=== PATIENT | male | born 2000 | race African-American/Black ===

== ENCOUNTER 2019-10-30 18:27 | Emergency (ER) | payer OTHER ==
--- NOTE | 2019-10-30 18:49 | ER Document Report ---
HPI - HPI Context: CHIEF COMPLAINT: "I think I have strep throat". HPI: 18-year-old male presenting to the emergency department complaining of sore throat for the last 3 to 4 days no definitive fever. Patient states it feels similar to prior episodes of strep throat ROS: See HPI - all other systems were reviewed and are otherwise negative Constitutional: no fever Eyes: no drainage, no blurred vision ENT: no runny nose, + sore throat Cardiovascular: no chest pain Resp: no SOB, no cough GI: no vomiting, no diarrhea, no abdominal pain : no dysuria Integumentary: no rash Allergy: no hives Musculoskeletal: no extremity pain or swelling Neurological: no numbness/tingling, no weakness MEDICATIONS: I agree with the patient medications as charted by the RN. ALLERGIES: I agree with the allergies as charted by the RN. PAST MEDICAL HISTORY/PAST SURGICAL HISTORY: Reviewed and agree as charted by RN. SOCIAL HISTORY: Reviewed and agree as charted by RN. FAMILY HISTORY: No significant familial comorbid conditions directly related to patient complaint EXAM: Reviewed vital signs as charted by RN. CONSTITUTIONAL: Alert and oriented and responds appropriately to questions. Well-appearing; well-nourished HEAD: Normocephalic; atraumatic EYES: PERRL; Conjunctivae clear, sclerae non-icteric ENT: normal nose; no rhinorrhea; moist mucous membranes; pharynx with moderate erythema bilaterally without exudate, positive tonsillar hypertrophy, phonation normal NECK: Supple without meningismus; non-tender; positive anterior cervical lymphadenopathy, no masses CARD: RRR; no murmurs, no clicks, no rubs, no gallops; symmetric distal pulses RESP: Normal chest excursion without splinting or tachypnea; breath sounds clear and equal bilaterally; no wheezes, no rhonchi, no rales, pulse oximetry 98% on room air not hypoxic ABD/GI: Normal bowel sounds; non-distended; soft, non-tender. BACK: The back appears normal and is non-tender to palpation, there is no CVA tenderness EXT: Normal ROM in all joints; no cyanosis, no effusions, no edema SKIN: Normal color for age and race; warm; dry; good turgor; no acute lesions noted NEURO: Moves all extremities equally; Motor and sensory function intact PSYCH: The patient's mood and manner are appropriate. Grooming and personal hygiene are appropriate. MDM: 18-year-old male with likely strep throat. Strep test sent by nursing if positive will place on antibiotics <JACE DAMIAN - Last Filed: 10/30/19 20:52> <MEREDITH BARRERA - Last Filed: 10/30/19 23:40> - HPI Time Seen by Provider: 10/30/19 18:40 Past Medical History - Social History Smoking Status: Unknown if Ever Smoked Family History: Reviewed & Not Pertinent - Medical History Medical History: Negative <MEREDITH BARRERA - Last Filed: 10/30/19 23:40> Course - Re-evaluation Re-evalutation: 10/30/19 20:52 report to Meredith Barrera NP. [place] and disposition pending - Vital Signs Vital signs: Temp Pulse Resp BP Pulse Ox 98.1 F 78 16 135/88 H 95 10/30/19 18:34 10/30/19 18:34 10/30/19 18:34 10/30/19 18:34 10/30/19 18:34 <JACE DAMIAN - Last Filed: 10/30/19 20:52> - Re-evaluation Re-evalutation: 10/30/19 21:58 Multiple attempts by nursing staff to obtain mono testing. Per the advice of my attending physician we will treat him for presumed strep and will discharge home . - Vital Signs Vital signs: Temp Pulse Resp BP Pulse Ox 98.1 F 78 16 135/88 H 95 10/30/19 18:34 10/30/19 18:34 10/30/19 18:34 10/30/19 18:34 10/30/19 18:34 <MEREDITH BARRERA - Last Filed: 10/30/19 23:40> Discharge <JACE DAMIAN - Last Filed: 10/30/19 20:52> <MEREDITH BARRERA - Last Filed: 10/30/19 23:40> - Discharge Clinical Impression: Sore throat Condition: Stable Disposition: HOME, SELF-CARE Instructions: Sore Throat ([facility]) Additional Instructions: You are given a dose of penicillin here in the emergency department for presumed strep throat. A throat culture is pending. Please take Tylenol or ibuprofen for any pain or discomfort. Return to the emergency department any new or worsening symptoms to include difficulty swallowing, difficulty breathing or any other concerning symptom.
[2019-10-30] MEDS ORDERED: PENICILLIN G BENZATHINE 1.2 MILLION UNIT/2 ML DISP.SYRIN IM ONE (21:53)
[2019-10-30 22:54] VITALS: BP 134/75
== END 2019-10-30 22:55 | disposition home or self-care (01) ==
LOC: ER 18:27
DX: J02.9 Acute pharyngitis, unspecified (principal); J35.1 Hypertrophy of tonsils; R59.0 Localized enlarged lymph nodes
CPT/HCPCS: 99283; 96372; 87070; 87880; 87077; J0561